=== PATIENT | male | born 2000 | race Caucasian/White ===

== ENCOUNTER 2018-04-10 18:15 | Emergency (ER) | payer MEDICAID ==
[~2018-04-10] VITALS: Ht 167.6 cm; Wt 62.0 kg
[2018-04-10 18:49] VITALS: BP 111/72
[2018-04-10] MEDS ORDERED: CEPH-571 PO (19:11)
[2018-04-10] MEDS ORDERED: HYDR28CR14 TOP (19:11)
== END 2018-04-10 19:25 | disposition home or self-care (01) ==
LOC: ER 18:16
DX: L03.113 Cellulitis of right upper limb (principal); Z79.2 Long term (current) use of antibiotics; Z79.899 Other long term (current) drug therapy
CPT/HCPCS: 99283

== ENCOUNTER 2018-05-09 15:22 | Emergency (ER) | payer MEDICAID ==
[~2018-05-09] VITALS: Ht 170.2 cm; Wt 68.0 kg
[~2018-05-09 15:22] MED LIST: CEPH-571 PO; HYDR28CR14 TOP
[2018-05-09 15:28] VITALS: BP 120/80
[2018-05-09] MEDS ORDERED: LIDOcaine 1.5% w/epinephrine 1:200,000 5ml ampul IJ ONE (15:40)
[2018-05-09] MEDS ORDERED: HYDROcodone/acetaminophen 5mg/325mg tablet PO ONE (16:00)
[2018-05-09] MEDS ORDERED: ACET-3067 PO (16:03)
[2018-05-09] MEDS ORDERED: neomy sulf/bacitrac zn/polymixin b oint 14.2 gm tube TP ONE (16:05)
== END 2018-05-09 16:40 | disposition home or self-care (01) ==
LOC: ER 15:22
DX: S67.192A Crushing injury of right middle finger, initial encounter (principal); S67.194A Crushing injury of right ring finger, initial encounter; Z79.2 Long term (current) use of antibiotics; Z79.899 Other long term (current) drug therapy; W23.0XXA Caught, crushed, jammed, or pinched between moving objects, initial encounter; Y93.89 Activity, other specified; Y92.89 Other specified places as the place of occurrence of the external cause; Y99.8 Other external cause status
CPT/HCPCS: 64450; 73140; 99284; J3490

== ENCOUNTER 2021-09-12 16:30 | Emergency (ER) | payer MEDICAID, OTHER ==
[~2021-09-12] VITALS: Ht 175.3 cm; Wt 75.8 kg
[2021-09-12 16:56] VITALS: BP 115/65
[2021-09-12] MEDS ORDERED: LIDOcaine 1% W/epiNEPHrine 1:200,000 10ml vial IJ ONE (18:25)
[2021-09-12] MEDS ORDERED: CEPH-585 PO (19:00)
== END 2021-09-12 19:07 | disposition home or self-care (01) ==
LOC: ER 16:31
DX: L91.0 Hypertrophic scar (principal); T14.8XXA Other injury of unspecified body region, initial encounter; X58.XXXA Exposure to other specified factors, initial encounter; Y93.89 Activity, other specified; Y92.89 Other specified places as the place of occurrence of the external cause; Y99.8 Other external cause status
CPT/HCPCS: 10021; 99284